=== PATIENT | male | born 1940 | race Two or more races ===

== ENCOUNTER → 2016-10-12 | Outpatient (CLI) | payer OTHER, MEDICARE | LOC: FIMAGING 10:12 | PROVIDERS: ATTEND Family Medicine | DX: I51.7 Cardiomegaly (principal); I25.10 Atherosclerotic heart disease of native coronary artery without angina pectoris ==

== ENCOUNTER → 2016-10-12 | Outpatient (CLI) | payer OTHER | LOC: FIMAGING 09:11 | PROVIDERS: ATTEND Family Medicine | DX: R07.89 Other chest pain (principal); R53.1 Weakness; I10 Essential (primary) hypertension; I25.10 Atherosclerotic heart disease of native coronary artery without angina pectoris ==

== ENCOUNTER → 2016-10-15 | Outpatient (CLI) | payer OTHER, MEDICARE | LOC: BHFA 09:15 | PROVIDERS: ATTEND Internal Medicine Cardiovascular Disease | DX: I50.9 Heart failure, unspecified (principal); E11.9 Type 2 diabetes mellitus without complications; Z79.4 Long term (current) use of insulin; F41.9 Anxiety disorder, unspecified; F32.9 Major depressive disorder, single episode, unspecified; I25.10 Atherosclerotic heart disease of native coronary artery without angina pectoris; E78.5 Hyperlipidemia, unspecified; E03.9 Hypothyroidism, unspecified; I10 Essential (primary) hypertension ==

== ENCOUNTER → 2016-10-24 | Outpatient (CLI) | payer OTHER, MEDICARE | LOC: BHFA 11:30 | PROVIDERS: ATTEND Internal Medicine Cardiovascular Disease | DX: I25.10 Atherosclerotic heart disease of native coronary artery without angina pectoris (principal); I50.9 Heart failure, unspecified | CPT/HCPCS: 78452; 93017; 93306; A9500; J2785 ==

== ENCOUNTER 2016-11-07 07:29 | Day surgery (SDC) | payer OTHER, MEDICARE ==
[2016-11-07] MEDS ORDERED: NS 1,000 ML IV ONE (07:32)
[2016-11-07] MEDS ORDERED: diphenhydrAMINE 25 MG CAP PO ONE (07:32)
[2016-11-07] MEDS ORDERED: ASPIRIN EC 325 MG TAB PO ONE (07:32)
[2016-11-07] MEDS ORDERED: FAMOTIDINE 20 MG TAB PO ONE (07:32)
[2016-11-07] MEDS ORDERED: DIAZEPAM 5 MG TAB PO ONE (07:32)
--- NOTE | 2016-11-07 08:03 | CPEKG ---
Heart Rate: 68 RR Interval: 882 P-R Interval: 172 QRSD Interval: 92 QT Interval: 392 QTC Interval: 417 P [place]: 42 QRS [place]: -38 T Wave [place]: 28 EKG Severity - OTHERWISE NORMAL ECG - EKG Impression: SINUS RHYTHM EKG Impression: LEFT AXIS DEVIATION Electronically Signed By: Pete Ca 07-Nov-2016 12:19:50
[2016-11-07 08:39] LABS: % IMMATURE GRANULYOCYTES 0.3 % (0.0-1.1); ABSOLUTE IMMATURE GRANULOCYTES 0.03 10^3/uL (0.00-0.10); ADD DIFF? NO; ADD MORPH? NO; ADD SCAN? NO; ATYPICAL LYMPHOCYTE FLAG 10 (0-99); FRAGMENT RBC FLAG 0 (0-99); HEMATOCRIT 48.5 % (40.0-51.0); HEMOGLOBIN 16.8 g/dL (13.7-17.5); LEFT SHIFT FLG 0 (0-99); LIPEMIA HEMOLYSIS FLAG 90 (0-99); MEAN CELL HEMOGLOBIN 31.4 pg (27.9-34.1); MEAN CELL HEMOGLOBIN CONCENTR. 34.6 g/dL (32.4-36.7); MEAN CELL VOLUME 90.7 fL (81.5-99.8); MEAN PLATELET VOLUME 9.9 fL (8.7-11.7); PLATELET CLUMPS FLAG 10 (0-99); PLATELET COUNT 228 10^3/uL (150-400); RED BLOOD CELL COUNT 5.35 10^6/uL (4.40-6.38); RED CELL DISTRIBUTION WIDTH 12.8 % (11.5-15.2)
[2016-11-07 08:43] LABS: INR 1.03 (0.83-1.16); PROTIME(PATIENT) 13.4 SEC (12.0-15.0)
[2016-11-07] MEDS ORDERED: LIDOCAINE 1% 30 ML SDV ONE (08:43)
[2016-11-07] MEDS ORDERED: MIDAZOLAM 2 MG/2 ML VIAL ONE (08:43)
[2016-11-07] MEDS ORDERED: fentaNYL 100 MCG/2 ML INJ ONE (08:43)
[2016-11-07] MEDS ORDERED: IOPAMIDOL (ISOVUE 370) 100 ML BTL IV ONE (08:44)
[2016-11-07 08:58] LABS: ANION GAP 9 mEq/L (8-16); CALCIUM 9.3 mg/dL (8.5-10.4); CARBON DIOXIDE 24 mEq/l (22-31); CHLORIDE 105 mEq/L (97-110); CHOLESTEROL 113 mg/dL (140-220); CHOLESTEROL/HDL RATIO 2.22 RATIO (1.00-4.97); CREATININE 0.8 mg/dL (0.7-1.3); GLOMERULAR FILTRATION RATE > 60; GLUCOSE 148 mg/dL (70-100); HIGH DENSITY LIPOPROTEIN 51 mg/dL (40-65); LDL/HDL RATIO 0.82 RATIO (1.00-3.64); LOW DENSITY LIPOPROTEIN 42 mg/dL (80-100); MAGNESIUM 1.5 mg/dL (1.6-2.3); NON-HIGH DENSITY LIPOPROTEIN 62 mg/dL (90-129); POTASSIUM 4.5 mEq/L (3.5-5.2); SODIUM 138 mEq/L (134-144); TRIGLYCERIDE 102 mg/dL (40-150); VERY LOW DENSITY LIPOPROTEINS 20 mg/dL (8-25)
--- NOTE | 2016-11-07 11:27 | CPIP ---
[f rep st] INVASIVE CARDIAC PROCEDURE DATE OF PROCEDURE: 11/07/2016 PROCEDURE: 1. Coronary angiography. 2. Left ventriculography. INDICATION: 1. Known coronary artery disease, status post stenting of his left anterior descending coronary art kseha in 2000. 2. Chest pain symptoms, dissimilar from his previous angina. 3. Abnormal nuclear stress test that would be considered intermediate risk. ACCESS: Patient was prepped and draped in sterile fashion. 1% lidocaine was used to anesthetize th e right inguinal region. A 6-Ukrainian introducer sheath was placed selectively in the right common fe moral artery via modified Seldinger technique. CORONARY ANGIOGRAPHY: A 6-Ukrainian JL4 was advanced to the left main coronary artery and images obtai christy. The left main coronary artery trifurcated into LAD, ramus, and circumflex coronary arteries. The left main coronary artery appeared normal in the proximal segment. In the distal segment there was a 30% to 40% stenosis present. The left anterior descending coronary artery was previously sten mayur in the proximal segment. The previously-placed stents had mild in-stent restenosis without flow limitation. Distal to the previously-placed stents in the mid vessel, there was a discreet 50% to 60% stenosis present. The ramus coronary artery was a large vessel. The ramus coronary artery had mild luminal regularities throughout. There was no stenosis greater than 10%. The circumflex coron joann artery was a small vessel, approximately 2 mm in diameter. In the proximal segment of the vesse l there was a discrete 60% stenosis present, and in the mid segment there was a long segmental 80% t o 90% stenosis present. A 6-Ukrainian JR4 was advanced to the right coronary artery and images obtaine d. The right coronary artery demonstrated mild luminal irregularities throughout. There was no jeffrey nosis greater than 15% to 20%. LEFT VENTRICULOGRAPHY: A 6-Ukrainian pigtail catheter was advanced in the left ventricle and images ob tained. Left ventricle is normal in size, had normal systolic function. The estimated ejection fra ction is 55%. COMPLICATIONS: None. CONCLUSIONS: 1. Two-vessel coronary artery disease involving the left anterior descending coronary artery and ci rcumflex coronary artery. 2. Patent LAD stents with mild in-stent restenosis. 3. The circumflex coronary artery is a small vessel with a mid 80% to 90% stenosis present. This v essel could be treated percutaneously with a 2-0 stent. 4. Optimize medical management. We will plan on obtaining a Holter monitor to further evaluate pat ient's symptoms. /[id number]/MODL
== END 2016-11-07 15:38 | disposition home or self-care (01) ==
LOC: FCATH 07:29
PROVIDERS: ATTEND Internal Medicine Cardiovascular Disease
PROC: B2151ZZ Fluoroscopy of Left Heart using Low Osmolar Contrast (ICD-10-PCS; principal; 2016-11-07)
PROC: 4A023N7 Measurement of Cardiac Sampling and Pressure, Left Heart, Percutaneous Approach (ICD-10-PCS; principal; 2016-11-07)
PROC: B2111ZZ Fluoroscopy of Multiple Coronary Arteries using Low Osmolar Contrast (ICD-10-PCS; principal; 2016-11-07)
DX: I25.10 Atherosclerotic heart disease of native coronary artery without angina pectoris (principal); T82.857A Stenosis of other cardiac prosthetic devices, implants and grafts, initial encounter; I50.9 Heart failure, unspecified; I27.2 Other secondary pulmonary hypertension; I10 Essential (primary) hypertension; E11.9 Type 2 diabetes mellitus without complications; E78.5 Hyperlipidemia, unspecified; G47.33 Obstructive sleep apnea (adult) (pediatric); E66.9 Obesity, unspecified; Z68.39 Body mass index [BMI] 39.0-39.9, adult; F41.9 Anxiety disorder, unspecified; Z79.4 Long term (current) use of insulin
CPT/HCPCS: J1644; J2250; J3010; Q9967

== ENCOUNTER → 2016-11-07 | Outpatient (CLI) | payer OTHER, MEDICARE | LOC: BHFA 15:30 | PROVIDERS: ATTEND Internal Medicine Cardiovascular Disease | DX: R55 Syncope and collapse (principal); I47.1 Supraventricular tachycardia ==

== ENCOUNTER → 2018-05-30 | Outpatient (CLI) | payer OTHER, MEDICARE | LOC: BHFA 11:30 | PROVIDERS: ATTEND Internal Medicine Cardiovascular Disease | DX: I47.1 Supraventricular tachycardia (principal) ==